=== PATIENT | male | born 1995 | race African-American/Black ===

== ENCOUNTER 2024-11-25 13:41 | Emergency (ER) | payer OTHER ==
[~2024-11-25] VITALS: Ht 177.8 cm; Wt 71.0 kg
[2024-11-25 14:12] VITALS: BP 139/86; PULSE 79; RESP 20; TEMP 36.8; O2SAT 99
[2024-11-25 15:05] LABS: EOSINOPHILS % 1.9 % (0.0-5.0); HEMATOCRIT. 35.4 % (42.0-52.0); HEMOGLOBIN. 11.6 g/dL (14.0-18.0); LYMPHOCYTES % 29.8 % (20.0-50.0); MEAN CORPUSCULAR HEMOGLOBIN 27.6 pg (28.0-32.0); MEAN CORPUSCULAR HGB CONC 32.8 g/dL (31.0-37.0); MEAN CORPUSCULAR VOLUME 84.1 fL (80.0-94.0); MEAN PLATELET VOLUME 7.4 fl (7.4-10.4); MONOCYTES % 7.4 % (2.0-8.0); NEUTROPHILS % 59.9 % (40.0-76.0); PLATELET 342 x1000/uL (130-400); RED BLOOD CELL COUNT 4.21 mill/uL (4.7-6.1); RED CELL DISTRIBUTION WIDTH 16.4 % (11.6-14.6); WHITE BLOOD COUNT 6.1 x1000/uL (4.5-11.0)
[2024-11-25 15:12] LABS: CARBON DIOXIDE 28 mEq/L (21-32); CHLORIDE 104 mEq/L (98-107); POTASSIUM 3.8 mEq/L (3.5-5.1); SODIUM 141 mEq/L (136-145)
[2024-11-25 15:13] LABS: CALCIUM 9.1 mg/dL (8.7-10.4)
[2024-11-25 15:17] LABS: CREATININE 0.7 mg/dL (0.6-1.3)
[2024-11-25 15:18] LABS: GLUCOSE 130 mg/dL (70-105); UREA NITROGEN BLOOD 6 mg/dL (9-23)
[2024-11-25 15:19] LABS: ALANINE AMINOTRANSFERASE 31 IU/L (10-49); ALBUMIN 4.1 g/dL (3.2-4.8); ASPARTATE AMINOTRANSFERASE 53 IU/L (<34)
[2024-11-25 15:20] LABS: BILIRUBIN TOTAL 0.3 mg/dL (0.1-1.0)
[2024-11-25 15:24] LABS: BILIRUBIN DIRECT < 0.1 mg/dL (<=3.0)
[2024-11-25 15:25] LABS: ETHANOL BLOOD < 10 mg/dL (<10)
== END 2024-11-25 15:56 | disposition home or self-care (01) ==
LOC: ER 13:58
DX: R20.0 Anesthesia of skin (principal); R53.1 Weakness; R68.83 Chills (without fever); R53.83 Other fatigue
CPT/HCPCS: 36415; 80048; 80076; 80320; 85025; 99283; G0480